=== PATIENT | female | born 1945 | race Caucasian/White ===

== ENCOUNTER → 2017-01-29 | Outpatient (CLI) | payer MEDICARE, BC ==
--- NOTE | 2017-01-29 17:39 | RADRPT ---
PROCEDURE: Ultrasound of the right lower extremity venous system. CLINICAL INDICATION: Right leg pain and swelling, deep venous thrombosis TECHNIQUE: Naidu scale with and without compression, color doppler, spectral doppler of the venous system of the right lower extremity was performed. Venous augmentation maneuvers were utilized. COMPARISON: No prior studies are available for comparison. FINDINGS: Common femoral vein: Patent. Femoral vein: Patent. Popliteal vein: Patent. Calf veins: Patent. No soft tissue abnormalities are identified. IMPRESSION: No evidence of a deep vein thrombosis within the right lower extremity. RPTAT: AADD .Jeb Zee MD, MD Date Time Electronically viewed and signed by .Jeb Zee MD, on 01/29/2017 17:38 .B/
== END | disposition home or self-care (01) ==
LOC: U/S 15:39
PROVIDERS: ATTEND Orthopaedic Surgery
DX: I80.3 Phlebitis and thrombophlebitis of lower extremities, unspecified (principal)
CPT/HCPCS: 93971